=== PATIENT | female | born 2000 | race American Indian/Alaskan Native ===

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

== ENCOUNTER 2020-04-02 18:57 | Outpatient (CLI) | payer MEDICAID ==
[2020-04-02] MEDS ORDERED: LACTATED RINGERS 500 ML IV ONE (19:22)
[2020-04-02] MEDS ORDERED: LACTATED RINGERS 1,000 ML ONE (19:25)
[2020-04-02 20:20] LABS: Hematocrit 24.7 % (30.3-42.9); Hemoglobin 8.7 gm/dl (10.1-14.3)
[2020-04-02 20:39] LABS: Bacteria,Urine 1+ /HPF (Negative); Bilirubin,Urine NEG (Negative); Blood,Urine NEG (Negative); Color,Urine Yellow (Yellow); Mucus,Urine FEW /HPF; Protein,Urine <15 mg/dL mg/dL (Negative); Urobilinogen,Urine < 2.0 mg/dL (<2.0)
--- NOTE | 2020-04-02 20:41 | Ultrasound Report ---
ULTRASOUND OBSTETRIC LIMITED ULTRASOUND BIOPHYSICAL PROFILE INDICATION / CLINICAL INFORMATION: Decreased movement. Clinical Gestational Age (GA): 33.5 weeks.days COMPARISON: None available. FINDINGS: BREATHING MOVEMENT = 2 GROSS BODY MOVEMENT = 2 TONE = 2 QUALITATIVE AMNIOTIC FLUID VOLUME = 2 TOTAL BIOPHYSICAL SCORE = 8/8 HEART RATE (beats per minute): 150 AMNIOTIC FLUID INDEX (cm) = 9.0 (normal = 7-24 cm) PRESENTATION: Cephalic. ADDITIONAL FINDINGS: None. IMPRESSION: 1. Biophysical Score = 8/8 2. Normal LING of 9.0 cm Signer Name: Micheal Weiss MD Signed: 04/02/2020 8:37 PM Workstation Name: [id number]
[2020-04-02] MEDS ORDERED: LACTATED RINGERS 1,000 ML IV ONE (20:52)
[2020-04-02 21:10] VITALS: BP 108/64
[2020-04-02 22:05] LABS: Alanine Aminotransferase 7 units/L (7-56); Albumin 3.1 g/dL (3.9-5); Blood Urea Nitrogen 5 mg/dL (7-17); Calcium 8.8 mg/dL (8.4-10.2); Hemolysis Index 7
[2020-04-02 22:08] LABS: BUN/Creatinine Ratio 17
== END 2020-04-02 22:13 | disposition home or self-care (01) ==
LOC: TRG 18:57 → APU 18:57 → TRG 22:13
PROVIDERS: ATTEND Obstetrics & Gynecology
DX: O36.8130 Decreased fetal movements, third trimester, not applicable or unspecified (principal); O26.893 Other specified pregnancy related conditions, third trimester; R42 Dizziness and giddiness; O47.03 False labor before 37 completed weeks of gestation, third trimester; O99.513 Diseases of the respiratory system complicating pregnancy, third trimester; J45.909 Unspecified asthma, uncomplicated; Z3A.31 31 weeks gestation of pregnancy; Z87.891 Personal history of nicotine dependence
CPT/HCPCS: 36415; 59025; 76815; 76819; 80053; 81001; 85014; 85018; 96360; J7120; 96361

== ENCOUNTER 2021-02-22 17:34 | Emergency (ER) | payer MEDICAID ==
[2021-02-22 19:10] VITALS: BP 108/62
--- NOTE | 2021-02-22 22:39 | Emergency Department Report ---
ED Female HPI - General Chief complaint: Vaginal Bleeding Stated complaint: HEAVY BLEEDING, PAIN NAUSEA Source: patient Mode of arrival: Ambulatory Limitations: No Limitations - History of Present Illness Initial comments: CC: heavy bleeding HPI: This is a 20 yo female who presents with heavy bleeding body aches nausea headache. She is not sure if she is . LMP Jan 2. She normally has regular menses. Her menses is 2 weeks late. SHe has mild headache and mild body aches. No abdominal pain. Symptoms for 2 days. She is concerned because her boyfriend will not claim this child if she is . Complaint: vaginal bleeding -: Gradual, days(s) (2 days) Severity: mild Consistency: constant Improves with: none Worsens with: none Associated Symptoms: vaginal bleeding, other (Body aches nausea headache) - Related Data Previous Rx's Medication Instructions Recorded Last Taken Type Ondansetron [Zofran Odt] 4 mg PO Q6HR #15 tab.rapdis 01/18/19 Unknown Rx Sulfamethoxazole/Trimethoprim 1 each PO Q12H #20 tablet 01/18/19 Unknown Rx [Bactrim DS TAB] metroNIDAZOLE [Flagyl] 500 mg PO Q12HR #20 tab 01/18/19 Unknown Rx Allergies Allergy/AdvReac Type Severity Reaction Status Date / Time shellfish derived Allergy Hives Verified 04/02/20 19:20 ED Review of Systems ROS: Stated complaint: HEAVY BLEEDING, PAIN NAUSEA Other details as noted in HPI Comment: All other systems reviewed and negative Constitutional: denies: chills, fever, malaise Respiratory: denies: cough, shortness of breath Cardiovascular: denies: chest pain Gastrointestinal: denies: nausea, vomiting Musculoskeletal: myalgia Neurological: headache ED Past Medical Hx - Past Medical History Previous Medical History?: Yes Hx Hypertension: No Hx Diabetes: No Hx Deep Vein Thrombosis: No Hx Renal Disease: No Hx Sickle Cell Disease: No Hx Seizures: No Hx Asthma: Yes (last used inhaler several months ago) Hx HIV: No - Surgical History Past Surgical History?: No - Social History Smoking Status: Former Smoker Substance Use Type: None - Medications Home Medications: Home Medications Medication Instructions Recorded Confirmed Last Taken Type Ondansetron [Zofran Odt] 4 mg PO Q6HR #15 tab.rapdis 01/18/19 Unknown Rx Sulfamethoxazole/Trimethoprim 1 each PO Q12H #20 tablet 01/18/19 Unknown Rx [Bactrim DS TAB] metroNIDAZOLE [Flagyl] 500 mg PO Q12HR #20 tab 01/18/19 Unknown Rx ED Physical Exam - General Limitations: No Limitations General appearance: alert, in no apparent distress, other (Smiling laughing jovial appears comfortable) - Head Head exam: Present: atraumatic, normocephalic - Eye Eye exam: Present: normal appearance - ENT ENT exam: Present: mucous membranes moist - Neck Neck exam: Present: normal inspection - Respiratory Respiratory exam: Present: normal lung sounds bilaterally. Absent: respiratory distress, wheezes, rales, rhonchi - Cardiovascular Cardiovascular Exam: Present: regular rate, normal rhythm, normal heart sounds. Absent: systolic murmur, diastolic murmur, rubs, gallop - GI/Abdominal GI/Abdominal exam: Present: soft, normal bowel sounds. Absent: distended, tenderness, guarding, rebound - Extremities Exam Extremities exam: Present: normal inspection - Neurological Exam Neurological exam: Present: alert, oriented X3 - Psychiatric Psychiatric exam: Present: normal affect, normal mood - Skin Skin exam: Present: warm, dry, intact, normal color. Absent: rash ED Course Vital Signs 02/22/21 19:08 Temperature 98.2 F Pulse Rate 81 Respiratory 16 Rate Blood Pressure 108/62 O2 Sat by Pulse 100 Oximetry ED Medical Decision Making - Medical Decision Making Dysfunctional uterine bleeding: Likely related to change in breast-feeding patterns. She has been breast-feeding for 9 months. She has recently decreased the frequency of breast-feeding. Serum test negative. Refer to nut packer. Critical care attestation.: If time is entered above; I have spent that time in minutes in the direct care of this critically ill patient, excluding procedure time. ED Disposition Clinical Impression: Dysfunctional uterine bleeding Disposition: HOME / SELF CARE / HOMELESS Is pt being admited?: No Does the pt Need Aspirin: No Condition: Stable Instructions: Abnormal Uterine Bleeding, [id number] Referrals: [facility] [Provider Group] - 3-5 Days
== END 2021-02-23 01:24 | disposition home or self-care (01) ==
LOC: ED 17:34
DX: N93.8 Other specified abnormal uterine and vaginal bleeding (principal); J45.909 Unspecified asthma, uncomplicated; Z87.891 Personal history of nicotine dependence; Z91.013 Allergy to seafood
CPT/HCPCS: 36415; 84703; 99283

== ENCOUNTER 2021-11-15 11:45 | Emergency (ER) | payer MEDICAID ==
[2021-11-15 12:12] VITALS: BP 96/61
[2021-11-15 13:20] LABS: Basophils % (Auto) 1.1 % (0.0-1.8); Eosinophils # (Auto) 0.3 K/mm3 (0.0-0.4); Eosinophils % (Auto) 7.4 % (0.0-4.3); Hematocrit 37.6 % (30.3-42.9); Hemoglobin 12.1 gm/dl (10.1-14.3); Lymphocytes # (Auto) 1.5 K/mm3 (1.2-5.4); Lymphocytes % (Auto) 36.7 % (13.4-35.0); Mean Corpuscular HGB Conc 32 % (30-34); Mean Corpuscular Volume 80 fl (79-97); Monocytes # (Auto) 0.5 K/mm3 (0.0-0.8); Monocytes % (Auto) 11.4 % (0.0-7.3); Platelet Count 307 K/mm3 (140-440); Red Blood Count 4.71 M/mm3 (3.65-5.03); Red Cell Distribution Width 19.6 % (13.2-15.2)
[2021-11-15 13:41] LABS: INR 0.86 (0.87-1.13)
[2021-11-15 13:42] LABS: Partial Thromboplastin Time 27.5 Sec. (24.2-36.6)
[2021-11-15 13:43] LABS: BUN/Creatinine Ratio 12; Blood Urea Nitrogen 12 mg/dL (7-17); Calcium 9.7 mg/dL (8.4-10.2); Hemolysis Index 2
== END 2021-11-15 17:36 | disposition left against medical advice (07) ==
LOC: ED 11:45
DX: O46.90 Antepartum hemorrhage, unspecified, unspecified trimester (principal); Z3A.00 Weeks of gestation of pregnancy not specified; Z53.21 Procedure and treatment not carried out due to patient leaving prior to being seen by health care provider
CPT/HCPCS: 36415; 80048; 84702; 85025; 85610; 85730

== ENCOUNTER 2022-01-11 16:45 | Emergency (ER) | payer MEDICAID ==
--- NOTE | 2022-01-11 17:15 | Emergency Department Report ---
ED ENT HPI - General Chief complaint: Sore Throat Stated complaint: BUMPS ON BACK OF THROAT Time Seen by Provider: 01/11/22 17:13 Source: patient Mode of arrival: Ambulatory Limitations: No Limitations - History of Present Illness Initial comments: 21 yo comes to ER with 2 day hx of sore throat and today got a fever. She has hx of strep and this is the same as past episodes. Controlling secretions. ABC intact. Taking PO. No cough. No recent URI. No dysuria. No back pain. No abd pain. Pt ambulatory and non ill on arrival to ER complaint: sore throat -: days(s) (2) Location: throat Severity: mild Severity scale (0 -10): 3 Quality: burning Improves with: none Worsens with: none Associated Symptoms: fever, sore throat. denies: cough, gum swelling, toothache, pain with swallowing, tinnitus, hearing loss, discharge from ear, rhinorrhea - Related Data Previous Rx's Medication Instructions Recorded Last Taken Type Amoxicillin [Trimox CAP] 500 mg PO BID #20 capsule 01/11/22 Unknown Rx Ibuprofen [Motrin] 800 mg PO Q8HR PRN #30 tablet 01/11/22 Unknown Rx Allergies Allergy/AdvReac Type Severity Reaction Status Date / Time shellfish derived Allergy Hives Verified 04/02/20 19:20 ED Dental HPI - General Chief complaint: Sore Throat Stated complaint: BUMPS ON BACK OF THROAT Time Seen by Provider: 01/11/22 17:13 Source: patient Mode of arrival: Ambulatory Limitations: No Limitations - Related Data Previous Rx's Medication Instructions Recorded Last Taken Type Amoxicillin [Trimox CAP] 500 mg PO BID #20 capsule 01/11/22 Unknown Rx Ibuprofen [Motrin] 800 mg PO Q8HR PRN #30 tablet 01/11/22 Unknown Rx Allergies Allergy/AdvReac Type Severity Reaction Status Date / Time shellfish derived Allergy Hives Verified 04/02/20 19:20 ED Review of Systems ROS: Stated complaint: BUMPS ON BACK OF THROAT Other details as noted in HPI Comment: All other systems reviewed and negative ED Past Medical Hx - Past Medical History Previous Medical History?: Yes Hx Hypertension: No Hx Diabetes: No Hx Deep Vein Thrombosis: No Hx Renal Disease: No Hx Sickle Cell Disease: No Hx Seizures: No Hx Asthma: Yes (last used inhaler several months ago) Hx HIV: No Additional medical history: strep throat - Surgical History Past Surgical History?: No - Family History Family history: no significant - Social History Smoking Status: Never Smoker Substance Use Type: None - Medications Home Medications: Home Medications Medication Instructions Recorded Confirmed Last Taken Type Amoxicillin [Trimox CAP] 500 mg PO BID #20 capsule 01/11/22 Unknown Rx Ibuprofen [Motrin] 800 mg PO Q8HR PRN #30 tablet 01/11/22 Unknown Rx ED Physical Exam - General Limitations: No Limitations General appearance: alert, in no apparent distress - Head Head exam: Present: atraumatic, normocephalic - Eye Eye exam: Present: normal appearance - ENT ENT exam: Present: mucous membranes moist - Expanded ENT Exam Expanded Ear exam: Present: normal external inspection Mouth exam: Present: normal external inspection. Absent: drooling, trismus, muffled voice, tongue normal, tongue elevation Teeth exam: Present: normal inspection Throat exam: Positive: normal inspection, tonsillar erythema, tonsillar exudate - Neck Neck exam: Present: normal inspection - Respiratory Respiratory exam: Present: normal lung sounds bilaterally. Absent: respiratory distress - Cardiovascular Cardiovascular Exam: Present: regular rate, normal rhythm. Absent: systolic murmur, diastolic murmur, rubs, gallop - GI/Abdominal GI/Abdominal exam: Present: soft, normal bowel sounds - Extremities Exam Extremities exam: Present: normal inspection - Back Exam Back exam: Present: normal inspection - Neurological Exam Neurological exam: Present: alert, oriented X3 - Psychiatric Psychiatric exam: Present: normal affect, normal mood - Skin Skin exam: Present: warm, dry, intact, normal color. Absent: rash ED Course Vital Signs 01/11/22 01/11/22 17:11 17:40 Temperature 101.5 F H 101.0 F H Pulse Rate 112 H Respiratory 17 14 Rate Blood Pressure 116/57 [Right] O2 Sat by Pulse 98 98 Oximetry ED Medical Decision Making - Medical Decision Making Vital Signs 01/11/22 01/11/22 17:11 17:40 Temperature 101.5 F H 101.0 F H Pulse Rate 112 H Respiratory 17 14 Rate Blood Pressure 116/57 [Right] O2 Sat by Pulse 98 98 Oximetry b tonsilar exudate on exam given decadon, motrin and amox in ER. on dc exam HR 90 as per provider- temp 99 oral; pt ambulatory and taking po pt being dc home with dc plan of care including diet, meds, activity and follow up. Pt verbalizes understanding of plan of care. - Differential Diagnosis pharyngitis/uri Critical care attestation.: If time is entered above; I have spent that time in minutes in the direct care of this critically ill patient, excluding procedure time. ED Disposition Clinical Impression: Exudative pharyngitis Disposition: HOME / SELF CARE / HOMELESS Is pt being admited?: No Does the pt Need Aspirin: No Condition: Stable Instructions: Sore Throat, [id number] Additional Instructions: MEDS ORDERED UNTIL GONE FOLLOW UP WITH PCP IN 48 HOURS TO BE SURE YOU ARE GETTING BETTER STAY WELL HYDRATED WITH WATER DIET AND ACTIVITY TOLERATED Prescriptions: Ibuprofen [Motrin] 800 mg PO Q8HR PRN #30 tablet PRN Reason: Pain, Moderate (4-6) Amoxicillin [Trimox CAP] 500 mg PO BID #20 capsule Referrals: PRIMARY MD MAXIMO [Primary Care Provider] - 3-5 Days DAMIR DIOR MD [Staff Physician] - 3-5 Days Forms: Work/School Release Form(ED) Time of Disposition: 17:29
[2022-01-11] MEDS ORDERED: IBUPROFEN 800 MG TAB PO ONE (17:16)
[2022-01-11] MEDS ORDERED: dexAMETHasone 4 MG/ML VIAL IM ONE (17:16)
[2022-01-11] MEDS ORDERED: AMOXICILLIN 500 MG CAP PO ONE (17:16)
[2022-01-11 17:42] VITALS: BP 116/57
== END 2022-01-11 17:42 | disposition home or self-care (01) ==
LOC: ED 16:45
DX: J02.9 Acute pharyngitis, unspecified (principal); J45.909 Unspecified asthma, uncomplicated; Z91.013 Allergy to seafood; Z79.899 Other long term (current) drug therapy
CPT/HCPCS: 96372; 99282; J1100